=== PATIENT | male | born 2005 | race Caucasian/White ===

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

== ENCOUNTER 2024-08-29 01:19 | Emergency (ER) | payer OTHER ==
[2024-08-29 01:26] VITALS: BP 155/93; PULSE 84; RESP 18; TEMP 98.9; BMI 64.0
[2024-08-29] MEDS ORDERED: ALBUTEROL SO4 2.5/IPRATROPIUM 0.5 INH SOL 3 ML VIAL.NEB. NEB ONE (01:51)
[2024-08-29] MEDS: ALBUTEROL SO4 2.5/IPRATROPIUM 0.5 INH SOL 3 ML VIAL.NEB. NEB ONE (01:53)
== END 2024-08-29 02:25 | disposition home or self-care (01) ==
LOC: FER 01:19
PROC: 3E0F7GC Introduction of Other Therapeutic Substance into Respiratory Tract, Via Natural or Artificial Opening (ICD-10-PCS; principal; 2024-08-29)
DX: J45.901 Unspecified asthma with (acute) exacerbation (principal); R06.02 Shortness of breath; R50.9 Fever, unspecified; R05.9 Cough, unspecified
CPT/HCPCS: 99283-25